=== PATIENT | female | born 1970 | race Caucasian/White ===

== ENCOUNTER → 2018-05-28 | Outpatient (CLI) | payer OTHER ==
[~2018-05-28] MED LIST: ACET500 PO; CALCA500CH PO; CODACE30 PO; ENJUVIA PO; FAMO20 PO; LEVSOD100 PO; LEVSOD75 PO; LORA10ER PO; MICARDIS PO; OMEP20ER PO; PRED20 PO; PREG75 PO
[2018-05-30 15:08] LABS: HPV 16 Negative (Negative); HPV 18 Negative (Negative); HPV OTHER HR TYPES Negative (Negative)
== END | disposition home or self-care (01) ==
LOC: LAB 16:28 → LAB SHORT 16:28
PROVIDERS: Nurse Practitioner Women's Health
DX: Z12.72 Encounter for screening for malignant neoplasm of vagina (principal); Z91.89 Other specified personal risk factors, not elsewhere classified
CPT/HCPCS: 87624; G0123

== ENCOUNTER 2020-03-09 07:31 | Day surgery (SDC) | payer OTHER ==
[~2020-03-09] VITALS: Ht 157.5 cm; Wt 92.4 kg
--- NOTE | 2020-03-09 09:56 | NUR ---
03/09/20 0956 Hiral Holland ENEMA IS SCHEDULED AT [facility] IMAGING AT [address] WU.
== END 2020-03-09 09:56 | disposition home or self-care (01) ==
LOC: ORSCSDS 07:31
PROVIDERS: Internal Medicine Gastroenterology
PROC: 0DJD8ZZ Inspection of Lower Intestinal Tract, Via Natural or Artificial Opening Endoscopic (ICD-10-PCS; principal; 2020-03-09 08:45)
DX: Z12.11 Encounter for screening for malignant neoplasm of colon (principal); Z80.0 Family history of malignant neoplasm of digestive organs; I10 Essential (primary) hypertension; K21.9 Gastro-esophageal reflux disease without esophagitis; Z79.899 Other long term (current) drug therapy
CPT/HCPCS: 74270; J2704; J7120

== ENCOUNTER 2020-03-11 14:21 | Observation (INO) | payer OTHER ==
[~2020-03-11] VITALS: Ht 157.5 cm; Wt 95.5 kg
[2020-03-11 15:13] LABS: BASOPHILS ABSOLUTE AUTO 0.05 K/mm3 (0.00-0.23); BASOPHILS PERCENT AUTO 0 % (0-2); EOSINOPHILS ABSOLUTE AUTO 0.36 K/mm3 (0.00-0.68); EOSINOPHILS PERCENT AUTO 3 % (0-6); Hematocrit 42.8 % (33.0-51.0); Hemoglobin 13.9 g/dL (11.5-16.0); IMMATURE GRAN ABSOLUTE AUTO 0.06 K/mm3 (0.00-0.10); IMMATURE GRAN PERCENT AUTO 1 % (0-1); LYMPHOCYTES ABSOLUTE AUTO 3.81 K/mm3 (0.84-5.20); LYMPHOCYTES PERCENT AUTO 31 % (21-46); MONOCYTES ABSOLUTE AUTO 0.78 K/mm3 (0.16-1.47); MONOCYTES PERCENT AUTO 6 % (4-13); Mean Corpuscular HGB 29.4 pg (26.0-34.0); Mean Corpuscular HGB Conc 32.5 g/dL (31.5-36.5); Mean Corpuscular Volume 91 fL (80-100); Mean Platelet Volume 10.4 fL (9.1-12.4); NEUTROPHILS ABSOLUTE AUTO 7.41 K/mm3 (1.96-9.15); NEUTROPHILS PERCENT AUTO 59 % (41-73); Platelet Count 369 K/mm3 (150-400); RDW Coefficient Variation 12.1 % (11.7-14.2); RDW Standard Deviation 40.6 fL (35.1-46.3); Red Blood Cell Count 4.72 M/mm3 (3.80-5.20); White Blood Cell Count 12.47 K/mm3 (4.00-11.30)
[2020-03-11 15:40] LABS: Alanine Aminotransfer (ALT/SGP 45 U/L (12-78); Albumin, Blood 3.8 g/dL (3.4-5.0); Albumin/Globulin Ratio 0.8 (0.8-1.8); Alk Phos 110 U/L (50-136); Anion Gap 3 mmol/L (6-16); Aspartate Aminotrans (AST/SGOT 23 U/L (12-37); Bilirubin, Total 0.5 mg/dL (0.1-1.0); Blood Urea Nitrogen 8 mg/dL (8-24); Bun/Creatinine Ratio 8.5 (12.0-20.0); CO2, Blood 30 mmol/L (21-32); Calcium, Blood 9.2 mg/dL (8.5-10.1); Chloride, Blood 106 mmol/L (98-108); Creatinine, Blood 0.94 mg/dL (0.40-1.00); Globulin, Blood 4.5 g/dL (2.2-4.0); Glomerular Filtration Rate >60 (60-); Glucose, Blood 112 mg/dL (70-99); Potassium, Blood 3.6 mmol/L (3.5-5.5); Sodium, Blood 139 mmol/L (136-145); Total Protein, Blood 8.3 g/dL (6.4-8.2); Troponin I <0.015 ng/mL (0.000-0.040)
[2020-03-11] MEDS ORDERED: SYNTHROID75 MCG PO ×2 (17:50)
[2020-03-11] MEDS ORDERED: AMIT50 PO ×2 (17:50)
[2020-03-11] MEDS ORDERED: VERA120 PO ×2 (17:50)
[2020-03-11] MEDS ORDERED: Isosorbide Mono30 MG PO ×2 (17:50)
--- NOTE | 2020-03-12 06:27 | NUR ---
patient did well overnight, no complaints of chest pain, shortness of breath, or any other cardio pulmonary symptoms. The patient verbalized understanding of her upcoming procedure and remained very compliant throughout the shift. I educated the patient on what size and symptoms to report and she verbalize that she understood.
[2020-03-12 07:24] LABS: BASOPHILS ABSOLUTE AUTO 0.06 K/mm3 (0.00-0.23); BASOPHILS PERCENT AUTO 1 % (0-2); EOSINOPHILS ABSOLUTE AUTO 0.33 K/mm3 (0.00-0.68); EOSINOPHILS PERCENT AUTO 3 % (0-6); Hematocrit 41.3 % (33.0-51.0); Hemoglobin 13.4 g/dL (11.5-16.0); IMMATURE GRAN ABSOLUTE AUTO 0.03 K/mm3 (0.00-0.10); IMMATURE GRAN PERCENT AUTO 0 % (0-1); LYMPHOCYTES ABSOLUTE AUTO 3.87 K/mm3 (0.84-5.20); LYMPHOCYTES PERCENT AUTO 40 % (21-46); MONOCYTES ABSOLUTE AUTO 0.67 K/mm3 (0.16-1.47); MONOCYTES PERCENT AUTO 7 % (4-13); Mean Corpuscular HGB 29.6 pg (26.0-34.0); Mean Corpuscular HGB Conc 32.4 g/dL (31.5-36.5); Mean Corpuscular Volume 91 fL (80-100); Mean Platelet Volume 10.1 fL (9.1-12.4); NEUTROPHILS ABSOLUTE AUTO 4.69 K/mm3 (1.96-9.15); NEUTROPHILS PERCENT AUTO 49 % (41-73); Platelet Count 326 K/mm3 (150-400); RDW Coefficient Variation 12.3 % (11.7-14.2); RDW Standard Deviation 40.9 fL (35.1-46.3); Red Blood Cell Count 4.53 M/mm3 (3.80-5.20); White Blood Cell Count 9.65 K/mm3 (4.00-11.30)
[2020-03-12 07:39] LABS: Anion Gap 6 mmol/L (6-16); Blood Urea Nitrogen 11 mg/dL (8-24); Bun/Creatinine Ratio 10.7 (12.0-20.0); CO2, Blood 28 mmol/L (21-32); Calcium, Blood 8.6 mg/dL (8.5-10.1); Chloride, Blood 107 mmol/L (98-108); Creatinine, Blood 1.03 mg/dL (0.40-1.00); Glomerular Filtration Rate >60 (60-); Glucose, Blood 96 mg/dL (70-99); Potassium, Blood 4.1 mmol/L (3.5-5.5); Sodium, Blood 141 mmol/L (136-145); Troponin I <0.015 ng/mL (0.000-0.040)
--- NOTE | 2020-03-12 14:41 | NUR ---
PT POST ANGIO WITH NO INTERVENTION. TR BAND FULLY DEFLATED AT THIS POINT WITH NO SIGNS OF BLEEDING/HEMATOMA. VITALS HAS BEEN STABLE. PT DENIES CHEST PAIN/PRESSURE. PT C/O ACID FERLUX ONE TIME ORDER OF MAALOX GIVEN AND WAS EFFECTIVE. PT TO DISCHARGE HOME TODAY ONCE RIGHT RADIAL ACCESS SITE IS FULLY RECOVERED. WILL MONITOR
[2020-03-12] MEDS ORDERED: ASPI81CH PO ×2 (16:15)
[2020-03-12] MEDS ORDERED: ATOR20 PO ×2 (16:16)
[2020-03-12] MEDS ORDERED: TRAM50 PO ×2 (16:17)
--- NOTE | 2020-03-12 17:12 | NUR ---
PT DISCHARGE TO HOME TODAY WITH DISCHARGE ORDERS. RADIAL ACCESS SITE FULLY RECOVERED, TR BAND FULLY DEFLATED NO SIGNS OF BLEEDING/HEMATOMA. CLEAR DRESSING APPLIED, CDI. SLING APPLIED ON RIGHT ARM FOR IMMOBILIZATION. VITALS HAS BEEN STABLE. PT DENIES CHEST PAIN/PRESSURE, DIZZINESS/SOB. DISCHARGE MEDICATIONS AND INSTRUCTIONS DISCLOSED WITH PT, PT SIGNED CONSENT FORM. ALL BELONGINGS SENT WITH PT. PT TO FOLLOW-UP WITH DR SZYMANSKI WITHIN 2-3WEEKS, AND PCP. PRESCRIPTION SENT TO [facility]. PT ACCOMPANIED BY DIGITAL ACCOUNT SUPERVISOR VIA WHEELCAHIR FOR TRANSPORT.
== END 2020-03-12 17:00 | disposition home or self-care (01) ==
LOC: ER 14:21 → EDSTATUS 14:22 → PCU 17:43
PROVIDERS: Nurse Practitioner Acute Care; Physician Assistant; ADMIT Family Medicine
PROC: 4A023N7 Measurement of Cardiac Sampling and Pressure, Left Heart, Percutaneous Approach (ICD-10-PCS; principal; 2020-03-12)
PROC: B2111ZZ Fluoroscopy of Multiple Coronary Arteries using Low Osmolar Contrast (ICD-10-PCS; principal; 2020-03-12)
DX: I25.118 Atherosclerotic heart disease of native coronary artery with other forms of angina pectoris (principal); I10 Essential (primary) hypertension; E78.5 Hyperlipidemia, unspecified; E03.9 Hypothyroidism, unspecified; E66.9 Obesity, unspecified; G89.29 Other chronic pain; K21.9 Gastro-esophageal reflux disease without esophagitis; Z88.6 Allergy status to analgesic agent; Z88.8 Allergy status to other drugs, medicaments and biological substances; Z79.899 Other long term (current) drug therapy; Z87.891 Personal history of nicotine dependence; M19.90 Unspecified osteoarthritis, unspecified site
CPT/HCPCS: 36415; 71045; 76937; 80048; 80053; 83690; 83880; 84484; 85025; 85347; 93005; 93010; 93458; 93571; 96372; 99152; 99153; 99285-25; A9270-GY; C1769; C1887; C1894; G0378; J1644; J1650; J2250; J3010; J7030; Q9967

== ENCOUNTER 2020-03-18 09:35 | Day surgery (SDC) | payer OTHER ==
[~2020-03-18] VITALS: Ht 157.5 cm; Wt 95.1 kg
[~2020-03-18 09:35] MED LIST changes: +AMIT50 PO; +ASPI81CH PO; +ATOR20 PO; +Isosorbide Mono30 MG PO; +SYNTHROID75 MCG PO; +TRAM50 PO; +VERA120 PO
--- NOTE | 2020-03-18 10:34 | NUR ---
03/18/20 1034 Mel Urbano PT RESTING COMFORTABLY WITH SPOUSE AT BEDSIDE, CALL LIGHT WITHIN REACH. PT DENIES NEEDS AT THIS TIME.
--- NOTE | 2020-03-18 11:30 | NUR ---
03/18/20 1130 Delong,Geovanna L GANGLION LEFT 3RD FINGER AND LEFT WRIST IDENIFIED AND DISCARDED PER SURGEON
[2020-03-24] MEDS ORDERED: AMIT50 PO (16:10)
[2020-03-24] MEDS ORDERED: LEVSOD75 PO (16:10)
[2020-03-24] MEDS ORDERED: VERA120 PO (16:10)
[2020-03-24] MEDS ORDERED: BETA.05TO VAG (16:11)
[2020-03-24] MEDS ORDERED: Isosorbide Mono30 MG PO (16:12)
[2020-03-24] MEDS ORDERED: ACET500 PO (16:13)
[2020-03-24] MEDS ORDERED: ATOR20 PO (16:13)
[2020-03-24] MEDS ORDERED: Norco 5-325 Ta1 EACH PO (16:15)
== END 2020-03-18 13:34 | disposition home or self-care (01) ==
LOC: ORSCSDS 09:35
PROVIDERS: Orthopaedic Surgery
PROC: 0LB60ZZ Excision of Left Lower Arm and Wrist Tendon, Open Approach (ICD-10-PCS; principal; 2020-03-18 11:15)
PROC: 0L880ZZ Division of Left Hand Tendon, Open Approach (ICD-10-PCS; principal; 2020-03-18 11:15)
PROC: 0LB80ZZ Excision of Left Hand Tendon, Open Approach (ICD-10-PCS; principal; 2020-03-18 11:15)
DX: M67.432 Ganglion, left wrist (principal); M67.442 Ganglion, left hand; I10 Essential (primary) hypertension; I25.2 Old myocardial infarction; Z87.891 Personal history of nicotine dependence; I25.10 Atherosclerotic heart disease of native coronary artery without angina pectoris; E03.9 Hypothyroidism, unspecified; Z79.899 Other long term (current) drug therapy; Z79.82 Long term (current) use of aspirin; E66.01 Morbid (severe) obesity due to excess calories; Z68.38 Body mass index [BMI] 38.0-38.9, adult
CPT/HCPCS: J0171; J0690; J1100; J1885; J2250; J2405; J2704; J3010; J7120

== ENCOUNTER 2021-02-03 08:52 | Day surgery (SDC) | payer OTHER ==
[~2021-02-03] VITALS: Ht 157.5 cm; Wt 100.9 kg
[~2021-02-03 08:52] MED LIST changes: +BETA.05TO VAG; +Norco 5-325 Ta1 EACH PO
[2021-02-03] MEDS ORDERED: FLUCONAZOLE (09:59)
[2021-02-03] MEDS ORDERED: METO25ER PO (09:59)
[2021-02-03] MEDS ORDERED: Aspir 8181 MG PO (10:00)
--- NOTE | 2021-02-03 13:06 | NUR ---
02/03/21 1306 Na Christianson BUPIVACAINE 0.5% 30ML MIXED WITH EPI 0.15MG TO CONSTITUTE BUPIVACAINE 0.5% W/ EPI 1:200,[address] MARRERO DURING THE PROCEDURE.
== END 2021-02-03 14:53 | disposition home or self-care (01) ==
LOC: ORSCSDS 08:52
PROVIDERS: Podiatrist Foot & Ankle Surgery
PROC: 0QBM0ZZ Excision of Left Tarsal, Open Approach (ICD-10-PCS; principal; 2021-02-03 10:30)
PROC: 0L8P0ZZ Division of Left Lower Leg Tendon, Open Approach (ICD-10-PCS; principal; 2021-02-03 10:30)
DX: M24.572 Contracture, left ankle (principal); M72.2 Plantar fascial fibromatosis; M76.62 Achilles tendinitis, left leg; I10 Essential (primary) hypertension; G47.33 Obstructive sleep apnea (adult) (pediatric); Z87.891 Personal history of nicotine dependence; Z79.899 Other long term (current) drug therapy; E66.01 Morbid (severe) obesity due to excess calories; Z68.41 Body mass index [BMI] 40.0-44.9, adult
CPT/HCPCS: 82947; A9270; C1713; J0171; J0330; J0690; J1885; J2250; J2405; J3010; J7120

== ENCOUNTER → 2022-02-27 | Outpatient (CLI) | payer OTHER ==
[~2022-02-27] MED LIST changes: +Aspir 8181 MG PO; +FLUCONAZOLE; +METO25ER PO
== END ==
LOC: LAB SHORT 14:11 → PLD 14:11
DX: B35.1 Tinea unguium (principal)
CPT/HCPCS: 88312

== ENCOUNTER 2023-04-20 22:17 | Inpatient (IN) | payer OTHER ==
[~2023-04-20] VITALS: Ht 160 cm; Wt 101.2 kg
[2023-04-20 22:31] LABS: BASOPHILS ABSOLUTE AUTO 0.06 K/mm3 (0.00-0.23); BASOPHILS PERCENT AUTO 1 % (0-2); EOSINOPHILS ABSOLUTE AUTO 0.28 K/mm3 (0.00-0.68); EOSINOPHILS PERCENT AUTO 2 % (0-6); Hematocrit 42.1 % (33.0-51.0); Hemoglobin 13.8 g/dL (11.5-16.0); IMMATURE GRAN ABSOLUTE AUTO 0.04 K/mm3 (0.00-0.10); IMMATURE GRAN PERCENT AUTO 0 % (0-1); LYMPHOCYTES ABSOLUTE AUTO 3.64 K/mm3 (0.84-5.20); LYMPHOCYTES PERCENT AUTO 30 % (21-46); MONOCYTES ABSOLUTE AUTO 0.83 K/mm3 (0.16-1.47); MONOCYTES PERCENT AUTO 7 % (4-13); Mean Corpuscular HGB 29.3 pg (26.0-34.0); Mean Corpuscular HGB Conc 32.8 g/dL (31.5-36.5); Mean Corpuscular Volume 89 fL (80-100); Mean Platelet Volume 10.9 fL (9.1-12.4); NEUTROPHILS ABSOLUTE AUTO 7.49 K/mm3 (1.96-9.15); NEUTROPHILS PERCENT AUTO 61 % (41-73); Platelet Count 292 K/mm3 (150-400); RDW Coefficient Variation 13.8 % (11.7-14.2); RDW Standard Deviation 45.4 fL (35.1-46.3); Red Blood Cell Count 4.71 M/mm3 (3.80-5.20); White Blood Cell Count 12.34 K/mm3 (4.00-11.30)
[2023-04-20] MEDS ORDERED: RANOLAZINE ER500 M2 PO (22:45)
[2023-04-20] MEDS ORDERED: NEURONTIN300 MG PO (22:46)
[2023-04-20] MEDS ORDERED: MELO7.5 PO (22:47)
[2023-04-20] MEDS ORDERED: PANTOPRAZOLE SO40 M2 PO (22:47)
[2023-04-20 22:52] LABS: Albumin, Blood 3.2 g/dL (3.4-5.0); Albumin/Globulin Ratio 0.9 (0.8-1.8); Bilirubin, Total 0.4 mg/dL (0.1-1.0); Bun/Creatinine Ratio 17.1 (12.0-20.0); Calcium, Blood 8.4 mg/dL (8.5-10.1); Creatinine, Blood 0.82 mg/dL (0.40-1.00); Globulin, Blood 3.7 g/dL (2.2-4.0); Magnesium, Blood 1.7 mg/dL (1.6-2.4); Total Protein, Blood 6.9 g/dL (6.4-8.2)
[2023-04-21] VITALS (68 sets, daily range): BP systolic 113–159; BP diastolic 69–105
[2023-04-21 01:49] LABS: Anti-Xa UFH, PHA Monitoring <0.10 IU/mL; International Normalized Ratio 1.04; Prothrombin Time Results 10.9 Sec (9.7-11.5)
--- NOTE | 2023-04-21 02:31 | NUR ---
ASSUMED CARE PT IS A&O X4; SPO2 >92% ON RA; MAP >65; HR 89. PT ARRIVED ON UNIT W/ NITROGLYCERIN GTT INFUSING AND CP AT A "1 OR 2, MORE OF A DISCOMFORT". DURING ADMISSION HX/ASSESSMENT PT BECAME DYSPNEIC, AND BECAME VISIBLY WEAK; PT STATED CP WAS NOW AT A 3 (NOT RADIATING). PT ALSO STATED THAT SHE FELT NUMB "LIKE WHEN YOU'RE OUTSIDE IN THE COLD AND COME INTO A HOT ROOM.". DR DARDEN NOTIFIED AND STAT EKG DONE. ORDERS PUT IN BY DR DARDEN. EVENT LASTED ABOUT 20~ MINUTES AND PT STATES THAT CP IS BACK DOWN TO A "1/DISCOMFORT" AND THAT THE NUMBNESS IS GONE. PT STATES CURRENTLY SHE JUST FEELS FATIGUED AND THAT BESIDES THE NUMBNESS, THIS FELT LIKE ONE OF HER ANGINAL EPISODES.
--- NOTE | 2023-04-21 02:58 | NUR ---
UPDATE ASKED PT HOW CP IS DOING AND PT STATES IT'S BETTER THAN WHEN SHE FIRST CAME IN TO ICU.
--- NOTE | 2023-04-21 05:26 | NUR ---
SHIFT SUMMARY PT CONTINUES TO HAVE CP AT SAME LEVEL PREVIOUS NOTE (LESS THAN WHEN FIRST ARRIVING ONTO ICU). SLEPT/RESTED QUIETLY SINCE PREVIOUS NOTE AND STATED THAT "I'M ACTUALLY PRETTY COMFORTABLE RIGHT NOW". HEPARIN AND NITROGLYCERN INFUSING PER ORDER (SEE FLOWSHEET). PT FELT DIZZY WHEN SYSTOLIC WAS IN 110'S; NITROGLYCERIN PUT ON SB>TITRATED AND PT'S BP IS NOW 130~'S AND DIZZINESS HAS RESOLVED. NO OTHER ACUTE EVENTS SINCE PREVIOUS NOTE.
--- NOTE | 2023-04-21 08:47 | NUR ---
MD VISIT DR. WELLS CAME BY AND SAW PT. HE GAVE OK FOR PT TO HAVE CARDIAC DIET. HE ALSO GAVE ORDERS TO START CARVEDILOL, SEE ORDERS. PT WAS COMPLAINING OF TAMEZ THIS AM SO TYLENOL GIVEN AND NITRO GTT TITRATED DOWN BECAUSE BP HAS IMPROVED AND PT DENIES CHEST PAIN. WITH THOSE MEASURES PT SAYS HER HEADACHE IS GETTING BETTER. GOT PT UP TO CHAIR BECAUSE SHE IS UNCOMFORTABLE. PT'S DIASTOLIC BP INCREASED WITH HER UP IN THE CHAIR. WILL CONTINUE TO MONITOR AND TITRATE NITRO ACCORDINGLY.
[2023-04-21 08:55] LABS: BASOPHILS ABSOLUTE AUTO 0.05 K/mm3 (0.00-0.23); BASOPHILS PERCENT AUTO 0 % (0-2); EOSINOPHILS ABSOLUTE AUTO 0.24 K/mm3 (0.00-0.68); EOSINOPHILS PERCENT AUTO 2 % (0-6); Hematocrit 38.5 % (33.0-51.0); Hemoglobin 12.8 g/dL (11.5-16.0); IMMATURE GRAN ABSOLUTE AUTO 0.04 K/mm3 (0.00-0.10); IMMATURE GRAN PERCENT AUTO 0 % (0-1); LYMPHOCYTES ABSOLUTE AUTO 3.54 K/mm3 (0.84-5.20); LYMPHOCYTES PERCENT AUTO 28 % (21-46); MONOCYTES ABSOLUTE AUTO 0.74 K/mm3 (0.16-1.47); MONOCYTES PERCENT AUTO 6 % (4-13); Mean Corpuscular HGB 29.5 pg (26.0-34.0); Mean Corpuscular HGB Conc 33.2 g/dL (31.5-36.5); Mean Corpuscular Volume 89 fL (80-100); NEUTROPHILS PERCENT AUTO 63 % (41-73); Platelet Count 294 K/mm3 (150-400); RDW Coefficient Variation 13.8 % (11.7-14.2); RDW Standard Deviation 45.1 fL (35.1-46.3); Red Blood Cell Count 4.34 M/mm3 (3.80-5.20); White Blood Cell Count 12.61 K/mm3 (4.00-11.30)
[2023-04-21 09:13] LABS: Albumin/Globulin Ratio 0.9 (0.8-1.8); Bilirubin, Total 0.4 mg/dL (0.1-1.0); Bun/Creatinine Ratio 13.6 (12.0-20.0); Calcium, Blood 8.2 mg/dL (8.5-10.1); Creatinine, Blood 0.74 mg/dL (0.40-1.00); Globulin, Blood 3.4 g/dL (2.2-4.0); Potassium, Blood 4.3 mmol/L (3.5-5.5); Total Protein, Blood 6.4 g/dL (6.4-8.2)
--- NOTE | 2023-04-21 12:12 | NUR ---
REASSESSMENT PT HAS BEEN RESTING IN BED OR THE CHAIR THROUGHOUT THE MORNING. SHE HAS HAD A COUPLE EPISODES OF CHEST PAIN THAT SHE STATES IS ONLY ABOUT A 3/10 AND IS SIMILAR TO THE CHEST PAIN SHE USUALLY HAS. HER BP HAS IMPROVED SINCE GETTING HER MORNING MEDS AND NITRO HAS BEEN TITRATED DOWN TO 25MCG/MIN. HER HEADACHE HAS IMPROVED WELL. LUNGS REMAIN CLEAR, RA, SR. SHE GETS UP TO THE COMMODE TO VOID. HER VISITED THIS AM AND WAS PRESENT FOR Reji WELLS'S AND DR. SWIFT'S VISITS.
--- NOTE | 2023-04-21 16:58 | NUR ---
SHIFT SUMMARY PT WAS ROUNDED ON HOURLY THROUGHOUT THE SHIFT FOR IGNITION RISKS AND EDUCATION. NITRO WAS TITRATED OFF THIS AFTERNOON AND DBP HAS BEEN STAYING IN THE 90S. SHE CONTINUES TO DENY ANY CHEST PAINS THAT ARE DIFFERENT FROM HER NORM. LUNGS ARE CLEAR, RA, SR. SHE IS EATING WELL, VOIDING WITHOUT DIFFICULTY. SHE HAS BEEN UP TO THE BATHROOM WITH MINIMAL ASSIST. HER HEADACHE FROM THIS MORNING WENT AWAY AND HASN'T CAME BACK. CONTINUING TO MONITOR.
--- NOTE | 2023-04-21 21:40 | NUR ---
ASSUMED CARE: Assumed care of pt at 1900. Vitals stable. She complains of 2/10 chest pain at this time, declines pain medication. No ignition risks noted. No ignition policy discussed with patient, she agrees to comply with policy.
[2023-04-22] VITALS (11 sets, daily range): BP systolic 123–157; BP diastolic 81–110
[2023-04-22 04:00] LABS: BASOPHILS ABSOLUTE AUTO 0.05 K/mm3 (0.00-0.23); BASOPHILS PERCENT AUTO 1 % (0-2); EOSINOPHILS ABSOLUTE AUTO 0.22 K/mm3 (0.00-0.68); EOSINOPHILS PERCENT AUTO 3 % (0-6); Hematocrit 42.4 % (33.0-51.0); Hemoglobin 13.7 g/dL (11.5-16.0); IMMATURE GRAN ABSOLUTE AUTO 0.02 K/mm3 (0.00-0.10); IMMATURE GRAN PERCENT AUTO 0 % (0-1); LYMPHOCYTES ABSOLUTE AUTO 3.52 K/mm3 (0.84-5.20); LYMPHOCYTES PERCENT AUTO 40 % (21-46); MONOCYTES ABSOLUTE AUTO 0.65 K/mm3 (0.16-1.47); MONOCYTES PERCENT AUTO 7 % (4-13); Mean Corpuscular HGB 29.2 pg (26.0-34.0); Mean Corpuscular HGB Conc 32.3 g/dL (31.5-36.5); Mean Corpuscular Volume 90 fL (80-100); Mean Platelet Volume 10.9 fL (9.1-12.4); NEUTROPHILS ABSOLUTE AUTO 4.42 K/mm3 (1.96-9.15); NEUTROPHILS PERCENT AUTO 50 % (41-73); Platelet Count 280 K/mm3 (150-400); RDW Standard Deviation 46.8 fL (35.1-46.3); Red Blood Cell Count 4.69 M/mm3 (3.80-5.20); White Blood Cell Count 8.88 K/mm3 (4.00-11.30)
[2023-04-22 04:20] LABS: Albumin, Blood 3.1 g/dL (3.4-5.0); Anion Gap 5 mmol/L (6-16); Blood Urea Nitrogen 11 mg/dL (8-24); Bun/Creatinine Ratio 14.6 (12.0-20.0); CO2, Blood 27 mmol/L (21-32); Calcium, Blood 8.6 mg/dL (8.5-10.1); Chloride, Blood 112 mmol/L (98-108); Creatinine, Blood 0.75 mg/dL (0.40-1.00); Glomerular Filtration Rate 95 (60-); Glucose, Blood 93 mg/dL (70-99); Phosphorus, Blood 4.5 mg/dL (2.5-4.9); Potassium, Blood 4.1 mmol/L (3.5-5.5); Sodium, Blood 144 mmol/L (136-145)
--- NOTE | 2023-04-22 05:29 | NUR ---
SHIFT SUMMARY: Shift was uneventful. Pt slept all night, denies chest pain, vitals stable. Up to toilet to void several times.
--- NOTE | 2023-04-22 09:18 | NUR ---
SHIFT ASSESSMENT ASSUMED CARE OF PT @ 0700. PT A&OX4, FOLLOWING COMMANDS, SATURNINO. AMBULATES TO BSC WITH SBA. DENIES CP/SOB AT THIS TIME. TOLERATING PO INTAKE. NO CURRENT COMPLAINTS FROM PT. PLAN TO DC TO HOME WITH NEW MEDICATIONS.
[2023-04-22] MEDS ORDERED: CARV6.25 PO (10:00)
--- NOTE | 2023-04-22 10:55 | NUR ---
DISCHARGE PT DC'D TO HOME WITH , TAKEN TO CAR VIA WHEELCHAIR BY [employer]. NEW MEDICATION FAXED TO [facility], CONFIRMED RECEIVAL VIA PHONE. PT UNDERSTANDING OF NEW MEDICATION REGIMEN AND PLANS TO FOLLOW UP WITH CARDIOLOGY.
== END 2023-04-22 10:43 | disposition home or self-care (01) | DRG 305 ==
LOC: ER 22:17 → ICUE 22:18
PROVIDERS: Family Medicine; Student in an Organized Health Care Education/Training Program; ADMIT Internal Medicine
DX: I16.0 Hypertensive urgency (principal); Z68.41 Body mass index [BMI] 40.0-44.9, adult; E66.9 Obesity, unspecified; I10 Essential (primary) hypertension; E78.5 Hyperlipidemia, unspecified; R07.89 Other chest pain; M54.9 Dorsalgia, unspecified; I25.10 Atherosclerotic heart disease of native coronary artery without angina pectoris; K21.9 Gastro-esophageal reflux disease without esophagitis; R77.8 Other specified abnormalities of plasma proteins; D72.828 Other elevated white blood cell count; C44.92 Squamous cell carcinoma of skin, unspecified; M79.2 Neuralgia and neuritis, unspecified; E03.9 Hypothyroidism, unspecified; Z79.890 Hormone replacement therapy; Z79.899 Other long term (current) drug therapy; Z79.82 Long term (current) use of aspirin; Z90.710 Acquired absence of both cervix and uterus; Z98.890 Other specified postprocedural states; Z88.8 Allergy status to other drugs, medicaments and biological substances; Z87.891 Personal history of nicotine dependence; Z85.41 Personal history of malignant neoplasm of cervix uteri; Z90.722 Acquired absence of ovaries, bilateral; Z90.49 Acquired absence of other specified parts of digestive tract
CPT/HCPCS: 71045; 80053; 80069; 83735; 83880; 84484; 85025; 85379; 85520; 85610; 85730; 93005; 93010; 93970; 96365; 96366; 99285-25; A9270; C1751; C9113; J1644; J3010; J7030

== ENCOUNTER 2024-06-22 05:49 | Day surgery (SDC) | payer OTHER ==
[~2024-06-22] VITALS: Ht 157.5 cm; Wt 103.0 kg
[2024-06-22] VITALS (8 sets, daily range): BP systolic 111–147; BP diastolic 81–97
[~2024-06-22 05:49] MED LIST changes: +CARV6.25 PO; +MELO7.5 PO; +NEURONTIN300 MG PO; +PANTOPRAZOLE SO40 M2 PO; +RANOLAZINE ER500 M2 PO
[2024-06-22] MEDS ORDERED: Verapamil HCL 2.5 MG/ML 2ML Injection ONE (06:27)
[2024-06-22] MEDS ORDERED: Nitroglycerin 2 MG/20 ML BTL ONE (06:28)
[2024-06-22] MEDS ORDERED: Heparin Sodium 1000 Units/ML 10ML MDV ONE (06:28)
[2024-06-22] MEDS ORDERED: NS 1,000 ML IV ONE ×2 (06:28→07:07)
[2024-06-22] MEDS ORDERED: NS 250 ML IV ONE (06:28)
[2024-06-22] MEDS ORDERED: Crestor40 MG PO (06:29)
[2024-06-22] MEDS ORDERED: Midazolam HCl 1MG / ML 2ML Vial ONE (07:07)
[2024-06-22] MEDS ORDERED: FentaNYL Citrate 50 MCG/ML 2 ML Injection ONE (07:07)
--- NOTE | 2024-06-22 08:00 | NUR ---
PATIENT BACK IN RECOVERY TOMY. PATIENT SITTING UPRIGHT IN BED. R RADIAL TR BAND FULLY IN FLATED. SITE C/D/I SOFT/NONTENDER, NO EVIDENCE OF BLEEDING. VSS ON RA.
[2024-06-22] MEDS ORDERED: FURO20 PO (08:04)
--- NOTE | 2024-06-22 08:06 | NUR ---
MD AT BEDSIDE WITH SPOUSE AND PATIENT DISCUSSING RESULTS OF ANGIOGRAM
--- NOTE | 2024-06-22 09:01 | NUR ---
INITIAL 2 CC OF AIR REMOVED FROM R RADIAL TR BAND. SITE C/D/I SOFT/NONTENDER, NO EVIDENCE OF BLEEDING. PATIENT SITTING UP IN BED TOLREATING PO INTAKE WELL. SPOUSE PRESENT AT BEDSIDE. NEW PRESCRIPTION CALLED TO PHARMACY. VSS ON RA
--- NOTE | 2024-06-22 09:24 | NUR ---
PATIENT STANDING AND AMBULATING TO RESTROOM WITHOUT DIFFICULTY. R RADIAL TR BAND C/D/I SOFT/NONTENDER, NO EVIDENCE OF BLEEDING. VSS ON RA
--- NOTE | 2024-06-22 10:00 | NUR ---
ALL AIR REMOVED FROM RIGHT RADIAL TR BAND. SITE C/D/I, SOFT/NONTENDER, NO EVIDENCE OF BLEEDING. PATIENT DENYING ANY PAIN. VSS ON RA
--- NOTE | 2024-06-22 10:38 | NUR ---
PATIENT DISCHARGED HOME AT THIS TIME. DISCHARGE INSTRUCTIONS REVIEWED WITH PATIENT. ALL QUESTIONS WERE ANSWERED. RIGHT RADIAL TR BAND REMOVED, CLOTH DOT AND ARM BOARD IN PLACE. SITE C/D/I SOFT/NONTENDER, NO EVIDENCE OF BLEEDING. PIV REMOVED WITHOUT DIFFICULTY, CATHETER INTACT. VSS ON RA PATIENT WHEELED TO HOSPITAL ENTRANCE AND SPOUSE ABLE TO PROVIDE TRANSPORTATION HOME
== END 2024-06-22 16:22 | disposition home or self-care (01) ==
LOC: MHTC 05:49
DX: I25.110 Atherosclerotic heart disease of native coronary artery with unstable angina pectoris (principal); I11.0 Hypertensive heart disease with heart failure; I50.9 Heart failure, unspecified; E78.00 Pure hypercholesterolemia, unspecified; K21.9 Gastro-esophageal reflux disease without esophagitis; E66.01 Morbid (severe) obesity due to excess calories; Z68.41 Body mass index [BMI] 40.0-44.9, adult; Z87.891 Personal history of nicotine dependence; Z79.890 Hormone replacement therapy; Z79.899 Other long term (current) drug therapy; Z88.6 Allergy status to analgesic agent; Z88.8 Allergy status to other drugs, medicaments and biological substances; Z90.49 Acquired absence of other specified parts of digestive tract; Z90.710 Acquired absence of both cervix and uterus
CPT/HCPCS: 76937; 93458; 99152; 99153; C1769; C1887; C1894; J1644; J2250; J3010; J7030; J7050; Q9967